=== PATIENT | female | born 1940 | race Caucasian/White ===

== ENCOUNTER 2020-11-20 20:35 | Emergency (ER) | payer MEDICARE, BC ==
[~2020-11-20] VITALS: Ht 157.5 cm; Wt 59.1 kg
[2020-11-20 20:40] VITALS: BP 152/50; Ht 157.5 cm; Wt 59.1 kg
[2020-11-20] MEDS ORDERED: CEPHALEXIN500 M1 PO (20:43)
[2020-11-20] MEDS ORDERED: BAYER CHEWABLE81 MG PO (20:44)
[2020-11-20] MEDS ORDERED: LIPITOR40 MG PO (20:44)
[2020-11-20] MEDS ORDERED: SUPER B COMPLE1 EAC1 PO (20:44)
[2020-11-20] MEDS ORDERED: CYCLOBENZAPRINE10 MG PO (20:44)
[2020-11-20] MEDS ORDERED: ZYRTEC10 MG PO (20:46)
[2020-11-20] MEDS ORDERED: ROCALTROL0.25 MCG PO (20:46)
[2020-11-20] MEDS ORDERED: KLONOPIN1 MG PO (20:47)
[2020-11-20] MEDS ORDERED: LAMICTAL25 MG PO (20:47)
[2020-11-20] MEDS ORDERED: TIROSINT100 MCG PO (20:47)
[2020-11-20] MEDS ORDERED: PROTONIX40 MG PO (20:47)
[2020-11-20] MEDS ORDERED: IPRAT-ALBUT 0.5-3 ML UPD (20:47)
[2020-11-20] MEDS ORDERED: PROPRANOLOL HCL20 MG PO (20:48)
[2020-11-20] MEDS ORDERED: SYSTANE NIGHTT3.5 GM EACH EYE (20:48)
[2020-11-20] MEDS ORDERED: PAROXETINE HCL10 MG PO (20:48)
[2020-11-20] MEDS ORDERED: SEROQUEL200 MG PO (20:49)
== END 2020-11-20 21:24 | disposition home or self-care (01) ==
LOC: D.ER 20:35
DX: J39.2 Other diseases of pharynx (principal)